=== PATIENT | female | born 1970 | race Caucasian/White ===

== ENCOUNTER 2017-01-11 20:47 | Emergency (ER) | payer OTHER ==
[~2017-01-11] VITALS: Ht 157.5 cm; Wt 79.7 kg
[~2017-01-11 20:47] MED LIST: B-COCAP2 PO; CLTP PO; MULT-506
[2017-01-11 20:50] VITALS: BP 127/80; PULSE 63; TEMP 36.5; O2SAT 100; Ht 157.5 cm; Wt 79.7 kg
[2017-01-11] MEDS ORDERED: CETI10TA84 PO (21:03)
[2017-01-11] MEDS ORDERED: CLOT1CRE80 TOP (21:03)
--- NOTE | 2017-01-11 21:44 | DIAGNOSTIC IMAGING REPORT ---
LEFT FOOT MIN 3 VIEWS ROUTINE CLINICAL HISTORY: L foot pain and swelling; eval for FB pain COMPARISON: None. DISCUSSION: The bones and joint spaces appear intact. There is no evidence of fracture, dislocation or bony disease. Mild soft tissue edema. No evidence for radiopaque foreign body. Heel spur. IMPRESSION: Degenerative change. Mild soft tissue edema. No acute bony change. No radiopaque foreign body. Electronically signed by: Aquiles Lazaro M.D. 01/11/2017 9:43 PM Dictated Date/Time: 01/11/2017 9:43 PM
[2017-01-11] MEDS ORDERED: CEPH500C2 PO (21:55)
[2017-01-11] MEDS ORDERED: CEPHALEXIN 500MG HOME PACK 1 EA BTL PO ONE (22:00)
--- NOTE | 2017-01-12 20:01 | EMERGENCY ROOM VISIT NOTE ---
ED Visit Note First contact with patient: 21:00 Chief Complaint: I stepped on a nail with my left foot. History of Present Illness: Ms. Rai is a 46-year-old white female who ambulates into the ED accompanied by her complaining of plantar left foot pain under the great toe after stepping on a nail yesterday afternoon. Patient describes the pain as a throbbing sensation. She rates her discomfort 4 /10. The pain is nonradiating. Pain worsens with palpation and ambulation. She has not identified any alleviating factors related to the pain. She is using [id number] medications without relief of her discomfort. She denies any associated symptoms including ankle pain, other foot pain, foot/toe weakness/numbness/tingling, fevers, chills, sweats, skin color changes, continuous bleeding. Review of Systems: As noted above in history of present illness. 8 body systems were reviewed and found to be negative as noted above. Past Medical History: Status post post right lateral knee surgery, and right shoulder surgeries. Current Medications: Multivitamins, Zyrtec, unspecified antifungal cream. Allergies to Medications: Penicillin. Social History: Patient is currently employed; she feels safe in her home environment; she admits to tobacco and alcohol use. Physical Examination: Vital Signs: Date Time Temp Pulse Resp B/P (MAP) Pulse Ox O2 Delivery O2 Flow Rate FiO2 01/11/17 20:50 36.5 63 16 127/80 100 Room Air GENERAL: 46-year-old female in mild distress due to pain, nontoxic-appearing, afebrile and hemodynamically stable. NEUROLOGICAL: Awake, alert and oriented to person, place and time. Answering questions appropriately and following commands. Good hand eye coordination. No focal motor or sensory deficits. SKIN: Warm, dry and pink. Left Foot: Single puncture wound noted to the plantar surface of the left foot over the lateral aspect of the first MTP joint. There is no active bleeding. There is no local erythema or edema. No palpable abscesses. No lymphangitis. LEFT FOOT: Please see description above in SKIN. There is no gross bony deformity. She has mild tenderness over the puncture site. There is mild edema over the top of the foot but it is not erythematous or hot. There is full range of motion in flexion and extension of the MCP joint. Throughout the foot especially the great toe she has sensation of light touch and brisk capillary refill. ED Course: Patient is assessed as noted above. Patient's medication list was reviewed. Left Foot X-Rays: Was read by myself and the radiologist showing no acute fractures or dislocations. Mild soft tissue edema was noted over the top of the foot and there is no evidence of foreign body. Patient was offered pain medications and refused. Patient was placed in a postop shoe. Patient was educated about today's findings and instructed on her treatment plan ; she verbalizes understanding and agreement with this plan. Clinical Impression: Puncture wound left foot. Decision-Making: Initially my differential diagnosis I considered infection, fracture, tendon injury, foreign body and other causes. Disposition: Patient discharged home in stable condition accompanied by her ; prior to departure she was reassessed and subjectively reported she was feeling the same. Plan: Comfort measures were discussed with the patient including use of ibuprofen and acetaminophen, postop shoe, ice and elevation. Patient was prescribed Keflex 500 mg 4 times a day for 7 days for antibiotic prophylaxis. Patient was encouraged to follow-up with family physician for recheck. Patient was encouraged return ED for worsening swelling, any new redness, puslike drainage, red streaking or fevers or any new/concerning symptoms.
== END 2017-01-11 22:05 | disposition home or self-care (01) ==
LOC: C.EDB 20:49 → C.EDD 22:05
DX: S91.332A Puncture wound without foreign body, left foot, initial encounter (principal); W45.0XXA Nail entering through skin, initial encounter; F17.200 Nicotine dependence, unspecified, uncomplicated

== ENCOUNTER → 2017-03-12 | Outpatient (CLI) | payer OTHER ==
[~2017-03-12] MED LIST changes: -B-COCAP2 PO; +CETI10TA84 PO; +CLOT1CRE80 TOP; -CLTP PO
--- NOTE | 2017-03-12 14:53 | MAMMOGRAPHY REPORT ---
BILATERAL DIGITAL SCREENING MAMMOGRAM TOMOSYNTHESIS WITH CAD: 03/12/2017 CLINICAL HISTORY: Routine screening. Patient has no complaints. TECHNIQUE: Breast tomosynthesis in addition to standard 2D mammography was performed. Current study was also evaluated with a Computer Aided Detection (CAD) system. COMPARISON: Comparison is made to exams dated: 03/09/2016 mammogram, 03/07/2015 mammogram, 02/15/2014 m ammogram, 02/09/2013 mammogram, and 02/05/2012 mammogram - [facility]. BREAST COMPOSITION: There are scattered areas of fibroglandular density in both breasts. FINDINGS: The parenchymal pattern is unchanged. No developing mass, architectural distortion or clus ter of suspicious microcalcifications is seen in either breast. IMPRESSION: ACR BI-RADS CATEGORY 2: BENIGN There is no mammographic evidence of malignancy. A 1 year screening mammogram is recommended. The pa tient will receive written notification of the results. Approximately 10% of breast cancers are not detected with mammography. A negative mammographic report should not delay biopsy if a clinically suggestive mass is present. Scarlett Piña M.D. ay/:03/12/2017 09:19:33 [employer] Grower: Mary BE(Jillian)(Ethel)(BD), [facility] letter sent: Normal 1/2 BI-RADS Code: ACR BI-RADS Category 2: Benign
== END | disposition home or self-care (01) ==
LOC: C.MAMM 08:24
PROVIDERS: ATTEND Internal Medicine
DX: Z12.31 Encounter for screening mammogram for malignant neoplasm of breast (principal)

== ENCOUNTER → 2017-09-09 | Outpatient (CLI) | payer OTHER ==
[2017-09-09 12:36] LABS: BASO % 0.3 %; BASO ABS # 0.02 K/uL (0-0.2); EOS % 2.6 %; EOS ABS # 0.18 K/uL (0-0.5); HEMATOCRIT 40.9 % (37-47); HEMOGLOBIN 14.1 g/dL (12.0-16.0); IG# 0.01 K/uL (0.00-0.02); MEAN CELL VOLUME 88.9 fL (80-100); MEAN CORPUSCULAR HEMOGLOBIN 30.7 pg (25-34); MEAN CORPUSCULAR HGB CONC 34.5 g/dl (32-36); MEAN PLATELET VOLUME 8.9 fL (7.4-10.4); MONO % 7.9 %; MONO ABS # 0.54 K/uL (0.11-0.59); NEUT % 54.1 %; PLATELET COUNT 280 K/uL (130-400); RED CELL DISTRIBUTION WIDTH CV 12.8 % (11.5-14.5); RED CELL DISTRIBUTION WIDTH SD 40.9 fL (36.4-46.3); WHITE BLOOD COUNT 6.85 K/uL (4.8-10.8)
[2017-09-09 13:36] LABS: HEMOGLOBIN A1C 5.6 % (4.5-5.6)
[2017-09-09 13:51] LABS: ALBUMIN 3.8 gm/dl (3.4-5.0); ALKALINE PHOSPHATASE 59 U/L (45-117); ALT/SGPT 31 U/L (12-78); BLOOD UREA NITROGEN 10 mg/dl (7-18); CALCIUM 9.2 mg/dl (8.5-10.1); CARBON DIOXIDE 30 mmol/L (21-32); CHOLESTEROL 173 mg/dl (0-200); CREATININE 0.75 mg/dl (0.60-1.20); GLUCOSE 120 mg/dl (70-99); LDL CHOLESTEROL CALCULATED 102 mg/dl; SODIUM 136 mmol/L (136-145)
[2017-09-09 13:53] LABS: AST/SGOT 16 U/L (15-37); TOTAL PROTEIN 6.7 gm/dl (6.4-8.2)
== END | disposition home or self-care (01) ==
LOC: C.LABBFT 07:51
PROVIDERS: ATTEND Internal Medicine
DX: R73.03 Prediabetes (principal); E78.5 Hyperlipidemia, unspecified